=== PATIENT | male | born 1960 | race Asian ===

== ENCOUNTER 2017-10-17 09:52 | Emergency (ER) | payer OTHER, BC ==
[2017-10-17] MEDS: DEXAMETHASONE 10 MG/ML 1 ML INJ IV (11:04)
[2017-10-17] MEDS: DIPHENHYDRAMINE 50 MG INJ IV (11:04)
== END 2017-10-17 11:38 | disposition home or self-care (01) ==
LOC: FTE 09:52
DX: L29.9 Pruritus, unspecified (principal); F17.210 Nicotine dependence, cigarettes, uncomplicated
CPT/HCPCS: 96374; 96375; 99284-25